=== PATIENT | male | born 1955 | race Caucasian/White ===

== ENCOUNTER → 2021-07-05 | Outpatient (CLI) | payer MEDICARE ==
[~2021-07-05] VITALS: Ht 175.3 cm; Wt 90.7 kg
== END ==
LOC: EROP 11:29
DX: U07.1 COVID-19 (principal)
CPT/HCPCS: 96365

== ENCOUNTER → 2021-07-18 | Outpatient (CLI) | payer MEDICARE | LOC: LAB 10:47 | DX: R30.0 Dysuria (principal) | CPT/HCPCS: 36415; 87077; 87086; 87186 ==

== ENCOUNTER → 2022-04-15 | Day surgery (SDC) | payer MEDICARE ==
[~2022-04-15] MED LIST: ATORVASTATIN CA40 MG PO; FLONASE 0.05% N16 GM; GABAPENTIN300 MG PO; HYDROCODON-ACE1 EAC2 PO; KENALOG 0.5% CR15 GM EXT; KLONOPIN TAB 00.5 MG PO; LEVOCETIRIZINE D5 MG PO; OXYBUTYNIN CHLOR5 MG PO; SINGULAIR10 MG PO; TOVIAZ8 MG PO
== END | disposition home or self-care (01) ==
LOC: OR 06:55
DX: C67.9 Malignant neoplasm of bladder, unspecified (principal); E78.5 Hyperlipidemia, unspecified; E66.9 Obesity, unspecified; F17.210 Nicotine dependence, cigarettes, uncomplicated; J45.909 Unspecified asthma, uncomplicated; F41.9 Anxiety disorder, unspecified; F32.A Depression, unspecified; Z79.899 Other long term (current) drug therapy; Z68.28 Body mass index [BMI] 28.0-28.9, adult
CPT/HCPCS: 77001; C1769; C1788; J0690; J1100; J1642; J2001; J2405; J2704; J3010; J7040